=== PATIENT | female | born 1990 | race Two or more races ===

== ENCOUNTER 2024-05-30 11:56 | Emergency (ER) | payer MEDICAID ==
[~2024-05-30] VITALS: Ht 157.5 cm; Wt 84.4 kg
[2024-05-30] MEDS ORDERED: ONDA4TAB11 PO (12:20)
[2024-05-30] MEDS ORDERED: DIPH1TAB PO (12:20)
[2024-05-30 12:47] VITALS: BP 127/83; O2SAT 99
== END 2024-05-30 12:47 | disposition home or self-care (01) ==
LOC: ER 11:56
DX: R11.2 Nausea with vomiting, unspecified (principal); R19.7 Diarrhea, unspecified
CPT/HCPCS: A4606; A4663